=== PATIENT | male | born 1990 | race Caucasian/White ===

== ENCOUNTER 2023-09-04 09:24 | Outpatient (OUT) | payer BC, SELFPAY ==
[2023-09-04 10:05] LABS: Basophils Absolute Auto 0.1 10^3/uL (0.0-0.1); Basophils Percent Auto 0.6 % (0.2-2.0); Eosinophils Absolute Auto 0.1 10^3/uL (0.0-0.7); Eosinophils Percent Auto 1.1 % (0.9-7.0); Hematocrit 44.6 % (42.0-54.0); Hemoglobin 15.2 g/dL (14.0-18.0); Immature Granulocytes Abs Auto 0.04 10^3/uL (0.00-0.03); Immature Granulocytes Pct Auto 0.5 % (0.0-0.5); Lymphocytes Absolute Auto 2.9 10^3/uL (1.2-3.8); Lymphocytes Percent Auto 34.5 % (20.5-60.0); Mean Corpuscular HGB Conc 34.1 g/dL (29.9-35.2); Mean Corpuscular Hemoglobin 30.9 pg (25.9-34.0); Mean Corpuscular Volume 90.7 fL (80.0-94.0); Monocytes Absolute Auto 0.6 10^3/uL (0.3-0.8); Monocytes Percent Auto 6.8 % (1.7-12.0); Neutrophils Absolute Auto 4.7 10^3/uL (1.4-6.5); Neutrophils Percent Auto 56.5 % (43.0-75.0); Platelet Count 246 10^3/uL (150-450); Red Blood Count 4.92 10^6/uL (4.70-6.10); Red Cell Distribution Width 12.5 % (11.0-15.0); White Blood Count 8.4 10^3/uL (4.0-11.0)
[2023-09-04 10:06] LABS: Estimated Average Glucose 94 mg/dL; Glycohemoglobin A1C 4.9 % (4.5-6.2)
[2023-09-04 10:34] LABS: Alanine Aminotransferase 67 U/L (16-63); Albumin Globulin Ratio 1.2; Alkaline Phosphatase 67 U/L (46-116); Anion Gap 10.2; Aspartate Amino Transferase 26 U/L (15-37); BUN Creatinine Ratio 11.6; Bilirubin Total 0.4 mg/dL (0.2-1.0); Calcium 8.7 mg/dL (8.5-10.1); Carbon Dioxide 28.6 mmol/L (21.0-32.0); Chloride 107 mmol/L (98-107); Cholesterol 142 mg/dL (<=200); Estimated GFR (African America >60 (>=60); Estimated GFR (Non-African Ame >60 (>=60); Globulin 3.4 g/dL; Glucose 93 mg/dL (74-106); HDL Cholesterol 48 mg/dL (40-60); LDL Cholesterol Calculated 85.6 mg/dL; Potassium 3.8 mmol/L (3.5-5.1); Sodium 142 mmol/L (136-145); Total Protein 7.4 g/dL (6.4-8.2); Triglycerides 42 mg/dL (<=150); VLDL CHOLESTEROL 8.4 mg/dL
[2023-09-05 06:08] LABS: HIV Ab/p24 Ag Screen Non Reactive (Non Reactive)
[2023-09-07 21:08] LABS: HCV Ab Reactive (Non Reactive)
== END 2023-09-04 09:25 | disposition home or self-care (01) ==
LOC: LAB 09:28
PROVIDERS: PCP Nurse Practitioner Primary Care; Visit Provider Nurse Practitioner Primary Care
DX: Z00.00 Encounter for general adult medical examination without abnormal findings (principal); Z11.59 Encounter for screening for other viral diseases; Z13.6 Encounter for screening for cardiovascular disorders; Z11.4 Encounter for screening for human immunodeficiency virus [HIV]
CPT/HCPCS: 36415; 80053; 80061; 83036; 85025; 86803; 87389; 87522

== ENCOUNTER 2024-07-02 16:01 | Outpatient (OUT) | payer BC, SELFPAY ==
--- OUTSIDE RECORDS SUMMARY | 2024-07-02 16:26 | XMS_ITS | CCD ---
Author Organization [facility] Informformerly [facility] Partnership [facility] Care Team Providers Care Systems Security Analyst Name Role Phone [facility] Gregory Catherine Primary Care Provider MD Monie De La Paz Emergency Provider [phone] Monie De La Paz Attending Unavailable Monie De La Paz Admitting Unavailable Gregory Escalera Primary Care Unavailable Allergies Allergy Classification Reported Allergen(s) Allergy Type Date of Onset Reaction(s) Facility (1 source) Penicillins Drug allergy (disorder) 02-23-2024 [facility] Repository Medications Completed/Discontinued Medications Medication Drug Class(es) Dates Sig (Normalized) Sig (Original) amoxicillin 875 mg / clavulanate 125 mg oral tablet (2 sources) Penicillin-class Antibacterial Start: 09-01-2020 End: 06-29-2024 take 1 tablet by mouth twice daily Amoxicillin-Pot Clavulanate (Augmentin) 875-125 mg tablet Discontinued 1 TAB PO Twice daily September 01, 2020 12:00am June 29, 2024 3:02pm dicyclomine hydrochloride 10 mg oral capsule (2 sources) Anticholinergic Start: 07-16-2017 End: 09-01-2020 take 2 capsules by mouth every eight hours Dicyclomine (Bentyl) 10 mg capsule Discontinued 20 MG PO Q8H July 16, 2017 12:00am September 01, 2020 8:29pm ondansetron 4 mg disintegrating oral tablet (2 sources) Serotonin-3 Receptor Antagonist Start: 02-23-2024 End: 06-29-2024 Ondansetron Discontinued 4 MG PO every 6 to 8 hours February 23, 2024 12:00am June 29, 2024 3:02pm pantoprazole 20 mg delayed release oral tablet (2 sources) Proton Pump Inhibitor Start: 02-23-2024 End: 06-29-2024 take 1 tablet by mouth once daily Pantoprazole (Protonix) 20 mg tablet,delayed release (DR/EC) Discontinued 20 MG PO Daily February 23, 2024 12:00am June 29, 2024 3:02pm Problems Problem Classification Problem Date Documented Date Episodic/Chronic Abdominal pain (4 sources) Abdominal pain; Translations: [Unspecified abdominal pain] 02-23-2024 Episodic Hepatitis (1 source) Viral hepatitis C; Translations: [Unspecified viral hepatitis C without hepatic coma] 06-29-2024 Episodic Noninfectious gastroenteritis (2 sources) Colitis; Translations: [Noninfective gastroenteritis and colitis, unspecified] 10-23-2023 Episodic Nonspecific chest pain (3 sources) Atypical chest pain; Translations: [Other chest pain] Onset: 02-23-2024 02-23-2024 Episodic Results Test Name Value Interpretation Reference Range Facility Alanine aminotransferase [En zymatic activity/volume] in Serum or PlasmaOrdered By: Monie De La Paz on 02-23-2024 ALT [Catalytic activity/Vol] 38 U/L 7-52 [facility] Albumin [Mass/volume] in Ser um or Plasma by Bromocresol green (BCG) dye binding methoOrdered By: Monie De La Paz on 02-23-2024 Albumin BCG dye [Mass/Vol] 4.3 g/dL 3.5-5.7 [facility] Alkaline phosphatase [Enzyma tic activity/volume] in Serum or PlasmaOrdered By: Monie De La Paz on 02-23-2024 ALP [Catalytic activity/Vol] 52 U/L 34-104 [facility] Amylaseon 02-23-2024 Amylase [Catalytic activity/Vol] 47 U/L Normal 29-103 [facility] Comment on above: Performed By: #### B MP, HS TROP, LIPASE, RADHA, CBC, CK, HEPATIC #### [facility] [address] Amylase [Enzymatic activity/ volume] in Serum or PlasmaOrdered By: Monie De La Paz on 02-23-2024 Amylase [Catalytic activity/Vol] 47 U/L 29-103 [facility] Aspartate aminotransferase [ Enzymatic activity/volume] in Serum or PlasmaOrdered By: Monie De La Paz on 02-23-2024 AST [Catalytic activity/Vol] 22 U/L 13-39 [facility] Automated erythrocytes count in urine sediment (number/area)Ordered By: Monie De La Paz on 02-23-2024 RBC Auto (Urine sed) [#/Area] 1-2 [HPF] 0-4 [facility] Automated leukocytes count i n urine sediment (number/area)Ordered By: Monie De La Paz on 02-23-2024 WBC Auto (Urine sed) [#/Area] None seen [HPF] 0-4 [facility] Basic Metabolic Panelon 02-09 Anion gap [Moles/Vol] 10.8 mmol/L Normal 6.0-15.0 [facility] Comment on above: Performed By: #### B MP, HS TROP, LIPASE, RADHA, CBC, CK, HEPATIC #### [address] Calcium [Mass/Vol] 9.4 mg/dL Normal 8.6-10.3 [facility] Comment on above: Performed By: #### B MP, HS TROP, LIPASE, RADHA, CBC, CK, HEPATIC #### [address] Chloride [Moles/Vol] 106 mmol/L Normal 98-107 [facility] Comment on above: Performed By: #### B MP, HS TROP, LIPASE, RADHA, CBC, CK, HEPATIC #### [address] CO2 [Moles/Vol] 23.8 mmol/L Normal 21.0-31.0 [facility] Comment on above: Performed By: #### B MP, HS TROP, LIPASE, RADHA, CBC, CK, HEPATIC #### [address] Creatinine [Mass/Vol] 0.97 mg/dL Normal 0.70-1.30 [facility] Comment on above: Performed By: #### B MP, HS TROP, LIPASE, RADHA, CBC, CK, HEPATIC #### [address] Creatinine Clr Calc Pharmacy 115.37 Normal [facility] Comment on above: Performed By: #### B MP, HS TROP, LIPASE, RADHA, CBC, CK, HEPATIC #### [facility] [address] GFR/1.73 sq M.predicted MDRD (S/P/Bld) [Vol rate/Area] mL/min/{1.73_m2} Normal [facility] Comment on above: Performed By: #### B MP, HS TROP, LIPASE, RADHA, CBC, CK, HEPATIC #### [address] Glucose [Mass/Vol] 89 mg/dL Normal 70-100 [facility] Comment on above: Result Comment: [facility] [place] Glucose Reference Range is dependent on time and content of last meal. Glucose of more than 200 mg/dL in a nonstressed, ambulatory subject supports the diagnosis of Diabetes Mellitus. ADA recommended reference range Performed By: #### B MP, HS TROP, LIPASE, RADHA, CBC, CK, HEPATIC #### [address] Potassium [Moles/Vol] 3.6 mmol/L Normal 3.5-5.1 [facility] Comment on above: Performed By: #### B MP, HS TROP, LIPASE, RADHA, CBC, CK, HEPATIC #### [address] Sodium [Moles/Vol] 137 mmol/L Normal 136-145 [facility] Comment on above: Performed By: #### B MP, HS TROP, LIPASE, RADHA, CBC, CK, HEPATIC #### [address] Urea nitrogen [Mass/Vol] 7 mg/dL Normal 7-25 [facility] Comment on above: Performed By: #### B MP, HS TROP, LIPASE, RADHA, CBC, CK, HEPATIC #### [place] [address] [place] Basophils Auto (Bld) [#/Vol] Ordered By: Monie De La Paz on 02-23-2024 Basophils (Bld) [#/Vol] 0.2 10*3/uL 0.0-0.2 [facility] Basophils/100 WBC Auto (Bld) Ordered By: Monie De La Paz on 02-23-2024 Basophils/100 WBC (Bld) 1.0 % . [facility] Bilirubin Test strip Ql (U)O rdered By: Monie De La Paz on 02-23-2024 Bilirubin Ql (U) Negative Negative [facility] Bilirubin.direct [Mass/volum e] in Serum or PlasmaOrdered By: Monie De La Paz on 02-23-2024 Bilirubin.direct [Mass/Vol] 0.10 mg/dL 0.03-0.18 [facility] Bilirubin.total [Mass/volume ] in Serum or PlasmaOrdered By: Monie De La Paz on 02-23-2024 Bilirubin [Mass/Vol] 0.7 mg/dL 0.3-1.0 [facility] CT abdomen pelvis wo conon 0 02-23-2024 CT abdomen pelvis wo con [facility] [place] [address] CT Scan Report Signed Patient: Fredy Card MR#: [id number] 71 : 1990 Acct:[id number] Age/Sex: 33 / M ADM Date: 02/23/24 Loc: ER Room: Type: [facility] ER Attending Dr: Copies to: Monie De La Paz MD Ordering Provider: Monie De La Paz MD Date of Service: 02/23/24 CT/CT abdomen pelvis wo con: abdominal pain CT abdomen pelvis wo con 02/23/2024 5:49 PM SIGNS AND SYMPTOMS: Abdominal pain and chest pain with dizziness and nausea TECHNIQUE: Multidetector ct axial images of the abdomen and pelvis were obtained without IV contrast. Multiplanar reformats were performed and reviewed to further define anatomy and possible pathology. CT was performed with one or more of the following dose reduction techniques: Automated exposure control, adjustment of the mA and/or kV according to patient size, or use of iterative reconstruction technique. COMPARISON: 09/01/2020 there is a 6 mm calcified granuloma at the right lung base which is unchanged. FINDINGS: Lower Chest: Within normal limits. ABDOMEN: Liver: Within normal limits. Bile Ducts: Normal caliber. Gallbladder: No calcified gallstones. Normal caliber wall. Pancreas: Within normal limits. Spleen: Calcified granulomas are present in the spleen. Adrenals: Within normal limits. Kidneys: Within normal limits. Pelvis: Reproductive Organs: No pelvic masses. Ureters: Within normal limits. Bladder: Within normal limits. Bowel: Normal caliber. There is a normal appendix in the right lower quadrant. Mesenteric Lymph Nodes: No enlarged mesenteric lymph nodes. Peritoneum: No ascites or free air, no fluid collection. Vessels: within normal limits Retroperitoneum: Within normal limits. Abdominal Wall: Within normal limits. Bones: Within normal limits. CT/CT abdomen pelvis wo con IMPRESSION: No bowel obstruction or obstructive uropathy. No free fluid or free air. Impression dictated by: Jose Barney M.D.02/23/2024 6:43 PM Dictation Location: [place] [address] Transcribed By: [facility] 02/23/241842 Dictated By: Jose Barney II, MD 02/23/241832 Signed By: 02/23/241842 Normal [facility] Calcium [Mass/volume] in Ser um or PlasmaOrdered By: Monie De La Paz on 02-23-2024 Calcium [Mass/Vol] 9.4 mg/dL 8.6-10.3 [facility] Carbon dioxide, total [Moles /volume] in Serum or PlasmaOrdered By: Monie DeL a Paz on 02-23-2024 CO2 [Moles/Vol] 23.8 mmol/L 21.0-31.0 [facility] Chloride [Moles/volume] in S madelyn or PlasmaOrdered By: Monie De La Paz on 02-23-2024 Chloride [Moles/Vol] 106 mmol/L 98-107 [facility] Color Auto (U)Ordered By: Suzi De La Paz on 02-23-2024 Color (U) Yellow Yellow [facility] Complete Blood Count Auto Di ffon 02-23-2024 Basophils (Bld) [#/Vol] 0.2 10*3/uL Normal 0.0-0.2 [facility] Comment on above: Result Comment: PERF ORMED BY: [address] [address] PATHOLOGIST CMM OPERATOR JINNY LUIS M.D. Performed By: #### B MP, HS TROP, LIPASE, RADHA, CBC, CK, HEPATIC #### [address] [address] [place] Basophils/100 WBC (Bld) 1.0 % Normal . [facility] Comment on above: Performed By: #### B MP, HS TROP, LIPASE, RADHA, CBC, CK, HEPATIC #### [address] Eosinophils (Bld) [#/Vol] 0.0 10*3/uL Normal 0.0-0.45 [facility] Comment on above: Performed By: #### B MP, HS TROP, LIPASE, RADHA, CBC, CK, HEPATIC #### [address] Eosinophils/100 WBC (Bld) 0.1 % Normal . [facility] Comment on above: Performed By: #### B MP, HS TROP, LIPASE, RADHA, CBC, CK, HEPATIC #### [address] Erythrocyte distribution width (RBC) [Ratio] 13.6 % Normal 12.0-14.8 [facility] Comment on above: Performed By: #### B MP, HS TROP, LIPASE, RADHA, CBC, CK, HEPATIC #### [address] Hematocrit (Bld) [Volume fraction] 42.5 % Normal 38.8-50.0 [facility] Comment on above: Performed By: #### B MP, HS TROP, LIPASE, RADHA, CBC, CK, HEPATIC #### [address] Hemoglobin (Bld) [Mass/Vol] 14.5 g/dL Normal 13.0-17.0 [facility] Comment on above: Performed By: #### B MP, HS TROP, LIPASE, RADHA, CBC, CK, HEPATIC #### [address] Lymphocytes (Bld) [#/Vol] 2.4 10*3/uL Normal 1.00-4.8 [facility] Comment on above: Performed By: #### B MP, HS TROP, LIPASE, RADHA, CBC, CK, HEPATIC #### [address] Lymphocytes/100 WBC (Bld) 14.9 % Normal . [facility] Comment on above: Performed By: #### B MP, HS TROP, LIPASE, RADHA, CBC, CK, HEPATIC #### [address] MCH (RBC) [Entitic mass] 30.6 pg Normal 27.5-35.2 [facility] Comment on above: Performed By: #### B MP, HS TROP, LIPASE, RADHA, CBC, CK, HEPATIC #### [address] MCV (RBC) [Entitic vol] 89.7 fL Normal 83.5-101 [facility] Comment on above: Performed By: #### B MP, HS TROP, LIPASE, RADHA, CBC, CK, HEPATIC #### [address] Mean Corpuscular HGB Conc 34.1 g/dL Normal 32.5-35.6 [facility] Comment on above: Performed By: #### B MP, HS TROP, LIPASE, RADHA, CBC, CK, HEPATIC #### [address] Monocytes (Bld) [#/Vol] 0.9 10*3/uL High 0.0-0.8 [facility] Comment on above: Performed By: #### B MP, HS TROP, LIPASE, RADHA, CBC, CK, HEPATIC #### [address] Monocytes/100 WBC (Bld) 23.97 % High 0.00-20.00 [facility] Comment on above: Result Comment: For adults in ED, MDW > 20.0 may be associated with a higher risk of sepsis during the first 12 hrs of hospital admission Performed By: #### B MP, HS TROP, LIPASE, RADHA, CBC, CK, HEPATIC #### [address] Monocytes/100 WBC (Bld) 5.8 % Normal . [facility] Comment on above: Performed By: #### B MP, HS TROP, LIPASE, RADHA, CBC, CK, HEPATIC #### [address] Neutrophils (Bld) [#/Vol] 12.6 10*3/uL High 1.8-7.7 [facility] Comment on above: Performed By: #### B MP, HS TROP, LIPASE, RADHA, CBC, CK, HEPATIC #### [address] Neutrophils/100 WBC (Bld) 78.2 % Normal . [facility] Comment on above: Performed By: #### B MP, HS TROP, LIPASE, RADHA, CBC, CK, HEPATIC #### [address] NRBC% 0.1 /100{WBC} Normal 0-0.5 [facility] Comment on above: Performed By: #### B MP, HS TROP, LIPASE, RADHA, CBC, CK, HEPATIC #### [address] Platelet mean volume (Bld) [Entitic vol] 8.4 fL Normal 6.6-10.1 [facility] Comment on above: Performed By: #### B MP, HS TROP, LIPASE, RADHA, CBC, CK, HEPATIC #### [address] Platelets (Bld) [#/Vol] 218 10*3/uL Normal 150-450 [facility] Comment on above: Performed By: #### B MP, HS TROP, LIPASE, RADHA, CBC, CK, HEPATIC #### [address] RBC (Bld) [#/Vol] 4.74 10*6/uL Normal 3.90-5.60 [facility] Comment on above: Performed By: #### B MP, HS TROP, LIPASE, RADHA, CBC, CK, HEPATIC #### [address] WBC (Bld) [#/Vol] 16.1 10*3/uL High 4.1-10.5 [facility] Comment on above: Performed By: #### B MP, HS TROP, LIPASE, RADHA, CBC, CK, HEPATIC #### [facility] [address] [place] [address] [place] Creatine Kinaseon 02-23-2024 CK [Catalytic activity/Vol] 67 U/L Normal [facility] Comment on above: Performed By: #### B MP, HS TROP, LIPASE, RADHA, CBC, CK, HEPATIC #### [facility] [address] [place] [id number] [facility] Creatine kinase [Enzymatic a ctivity/volume] in Serum or PlasmaOrdered By: Monie De La Paz on 02-23-2024 CK [Catalytic activity/Vol] 67 U/L [facility] Creatinine [Mass/volume] in Serum or PlasmaOrdered By: Monie De La Paz on 02-23-2024 Creatinine [Mass/Vol] 0.97 mg/dL 0.70-1.30 [facility] Dipstick and Microscopicon 0 02-23-2024 Appearance (U) Cloudy Critically abnormal Clear [facility] Comment on above: Order Comment: Name Collection Type:: Clean-Voided Midstream Performed By: #### B MP, HS TROP, LIPASE, RADHA, CBC, CK, HEPATIC #### [facility] [address] [place] [address] [place] Bacteria,Urine None Seen Normal None Seen [facility] Comment on above: Order Comment: Name Collection Type:: Clean-Voided Midstream Performed By: #### B MP, HS TROP, LIPASE, RADHA, CBC, CK, HEPATIC #### [facility] [address] [place] [id number] [place] Bilirubin,Urine Negative Normal Negative [facility] Comment on above: Order Comment: Name Collection Type:: Clean-Voided Midstream Performed By: #### B MP, HS TROP, LIPASE, RADHA, CBC, CK, HEPATIC #### [facility] [address] [place] [address] [facility] Color (U) Yellow Normal Yellow [facility] Comment on above: Order Comment: Name Collection Type:: Clean-Voided Midstream Performed By: #### B MP, HS TROP, LIPASE, RADHA, CBC, CK, HEPATIC #### [address] Glucose Ql (U) Normal Normal Normal [facility] Comment on above: Order Comment: Name Collection Type:: Clean-Voided Midstream Performed By: #### B MP, HS TROP, LIPASE, RADHA, CBC, CK, HEPATIC #### [address] Hyaline Casts,Urine None Seen Normal 0-8 [facility] Comment on above: Order Comment: Name Collection Type:: Clean-Voided Midstream Result Comment: PERF ORMED BY: [place] [address] PATHOLOGIST CMM OPERATOR JINNY LUIS M.D. Performed By: #### B MP, HS TROP, LIPASE, RADHA, CBC, CK, HEPATIC #### [address] Ketones Ql (U) Negative Normal Negative [facility] Comment on above: Order Comment: Name Collection Type:: Clean-Voided Midstream Performed By: #### B MP, HS TROP, LIPASE, RADHA, CBC, CK, HEPATIC #### [address] Leukocyte esterase Test strip Ql (U) Negative Normal Negative [facility] Comment on above: Order Comment: Name Collection Type:: Clean-Voided Midstream Performed By: #### B MP, HS TROP, LIPASE, RADHA, CBC, CK, HEPATIC #### [address] Nitrite,Urine Negative Normal Negative [facility] Comment on above: Order Comment: Name Collection Type:: Clean-Voided Midstream Performed By: #### B MP, HS TROP, LIPASE, RADAH, CBC, CK, HEPATIC #### [address] Occult Blood,Urine Negative Normal Negative [facility] Comment on above: Order Comment: Name Collection Type:: Clean-Voided Midstream Result Comment: PERF ORMED BY: [place] [address] PATHOLOGIST CMM OPERATOR JINNY LUIS M.D. Performed By: #### B MP, HS TROP, LIPASE, RADHA, CBC, CK, HEPATIC #### [address] pH (U) 8.5 [pH] Normal 5.0-9.0 [facility] Comment on above: Order Comment: Name Collection Type:: Clean-Voided Midstream Performed By: #### B MP, HS TROP, LIPASE, RADHA, CBC, CK, HEPATIC #### [address] Protein,Urine Negative Normal Negative [facility] Comment on above: Order Comment: Name Collection Type:: Clean-Voided Midstream Performed By: #### B MP, HS TROP, LIPASE, RADHA, CBC, CK, HEPATIC #### [address] RBC,Urine 1-2 Normal 0-4 [facility] Comment on above: Order Comment: Name Collection Type:: Clean-Voided Midstream Performed By: #### B MP, HS TROP, LIPASE, RADHA, CBC, CK, HEPATIC #### [address] Specificy [place],Urine 1.009 Normal 1.001-1.030 [facility] Comment on above: Order Comment: Name Collection Type:: Clean-Voided Midstream Performed By: #### B MP, HS TROP, LIPASE, RADHA, CBC, CK, HEPATIC #### [address] Squamous Epithelial Cell,Urine None Seen Normal 0-2 [facility] Comment on above: Order Comment: Name Collection Type:: Clean-Voided Midstream Performed By: #### B MP, HS TROP, LIPASE, RADHA, CBC, CK, HEPATIC #### [address] Urobilinogen,Urine Normal Normal Normal [facility] Comment on above: Order Comment: Name Collection Type:: Clean-Voided Midstream Performed By: #### B MP, HS TROP, LIPASE, RADHA, CBC, CK, HEPATIC #### [facility] [address] WBC,Urine None Seen Normal 0-4 [facility] Comment on above: Order Comment: Name Collection Type:: Clean-Voided Midstream Performed By: #### B MP, HS TROP, LIPASE, RADHA, CBC, CK, HEPATIC #### [facility] [address] ECG 12 lead ECGon 02-23-2024 ECG 12 lead ECG [facility] Main [place] [address] [place] [address] Electrocardiograph Report Signed Patient: Fredy Card MR#: [id number] 71 : 1990 Acct:[id number] Age/Sex: 33 / M ADM Date: 02/23/24 Loc: ER Room: Type: [facility] ER Attending Dr: Ordering Provider: Monie De La Paz MD Date of Service: 02/23/24 ECG/ECG 12 lead ECG: Chest Pain Copies to: Test Reason : Blood Pressure : 121/075 mmHG Vent. Rate : 080 BPM Atrial Rate : 080 BPM P-R Int : 172 ms QRS Dur : 078 ms QT Int : 334 ms P-R-T Axes : 079 071 073 degrees QTc Int : 385 ms Normal sinus rhythm Normal ECG No previous ECGs available Confirmed by MONIE DE LA PAZ MD ([id number]) on 02/23/2024 11:46:51 PM Referred By: Electronically Signed By:MONIE DE LA PAZ MD Transcribed By: [facility] Signed By Monie De La Paz MD 02/23/24 9872 Normal [facility] Eosinophils Auto (Bld) [#/Vo l]Ordered By: Monie De La Paz on 02-23-2024 Eosinophils (Bld) [#/Vol] 0.0 10*3/uL 0.0-0.45 [facility] Eosinophils/100 WBC Auto (Bl d)Ordered By: Monie De La Paz on 02-23-2024 Eosinophils/100 WBC (Bld) 0.1 % . [facility] Erythrocyte distribution wid th Auto (RBC) [Ratio]Ordered By: Monie De La Paz on 02-23-2024 Erythrocyte distribution width (RBC) [Ratio] 13.6 % 12.0-14.8 [facility] Globulin Calc (S) [Mass/Vol] Ordered By: Monie De La Paz on 02-23-2024 Globulin (S) [Mass/Vol] 2.7 g/dL [facility] Glucose [Mass/volume] in Ser um or PlasmaOrdered By: Monie De La Paz on 02-23-2024 Glucose [Mass/Vol] 89 mg/dL 70-100 [facility] Comment on above: ADA recommended refe rence rangeRandom Glucose Reference Range is dependent on time and content of last meal. Glucose of more than 200 mg/dL in a nonstressed, ambulatory subject supports the diagnosis of Diabetes Mellitus. Hematocrit Auto (Bld) [Volum e fraction]Ordered By: Monie De La Paz on 02-23-2024 Hematocrit (Bld) [Volume fraction] 42.5 % 38.8-50.0 [facility] Hemoglobin [Mass/volume] in BloodOrdered By: Monie De La Paz on 02-23-2024 Hemoglobin (Bld) [Mass/Vol] 14.5 g/dL 13.0-17.0 [facility] Hepatic Panelon 02-23-2024 Albumin [Mass/Vol] 4.3 g/dL Normal 3.5-5.7 [facility] Comment on above: Performed By: #### B MP, HS TROP, LIPASE, RADHA, CBC, CK, HEPATIC #### [facility] [address] Albumin/Globulin [Mass ratio] 1.6 {ratio} Normal [facility] Comment on above: Performed By: #### B MP, HS TROP, LIPASE, RADHA, CBC, CK, HEPATIC #### [facility] [address] [place] [phone] [place] ALP [Catalytic activity/Vol] 52 U/L Normal 34-104 [facility] Comment on above: Performed By: #### B MP, HS TROP, LIPASE, RADHA, CBC, CK, HEPATIC #### [facility] [facility] [address] [id number] [place] ALT [Catalytic activity/Vol] 38 U/L Normal 7-52 [facility] Comment on above: Performed By: #### B MP, HS TROP, LIPASE, RADHA, CBC, CK, HEPATIC #### [address] AST [Catalytic activity/Vol] 22 U/L Normal 13-39 [facility] Comment on above: Performed By: #### B MP, HS TROP, LIPASE, RADHA, CBC, CK, HEPATIC #### [address] Bilirubin [Mass/Vol] 0.7 mg/dL Normal 0.3-1.0 [facility] Comment on above: Performed By: #### B MP, HS TROP, LIPASE, RADHA, CBC, CK, HEPATIC #### [address] Bilirubin,Indirect 0.6 mg/dL Normal [facility] Comment on above: Performed By: #### B MP, HS TROP, LIPASE, RADHA, CBC, CK, HEPATIC #### [address] Bilirubin.indirect [Mass/Vol] 0.10 mg/dL Normal 0.03-0.18 [facility] Comment on above: Performed By: #### B MP, HS TROP, LIPASE, RADHA, CBC, CK, HEPATIC #### [address] Globulin (S) [Mass/Vol] 2.7 g/dL Normal T [facility] Comment on above: Performed By: #### B MP, HS TROP, LIPASE, RADHA, CBC, CK, HEPATIC #### [address] Protein [Mass/Vol] 7.0 g/dL Normal 6.4-8.9 [facility] Comment on above: Performed By: #### B MP, HS TROP, LIPASE, RADHA, CBC, CK, HEPATIC #### [address] Ketones Auto test strip (U) [Mass/Vol]Ordered By: Monie De La Paz on 02-23-2024 Ketones (U) [Mass/Vol] Negative Negative [facility] - UrinalysisOrder ed By: Monie De La Paz on 02-23-2024 Hyaline casts LM Ql (Urine sed) None seen [LPF] 0-8 [facility] Leukocytes [#/volume] correc roxane for nucleated erythrocytes in Blood by Automated counOrdered By: Monie De La Paz on 02-23-2024 WBC corrected for nucl RBC Auto (Bld) [#/Vol] 16.1 10*3/uL 4.1-10.5 [facility] Lipaseon 02-23-2024 Lipase [Catalytic activity/Vol] 19.0 U/L Normal 11.0-82.0 [facility] Comment on above: Result Comment: PERF ORMED BY: [place] [address] PATHOLOGIST CMM OPERATOR JINNY LUIS M.D. Performed By: #### B MP, HS TROP, LIPASE, RADHA, CBC, CK, HEPATIC #### [address] Lipase [Enzymatic activity/v olume] in Serum or PlasmaOrdered By: Monie De La Paz on 02-23-2024 Lipase [Catalytic activity/Vol] 19.0 U/L 11.0-82.0 [facility] Lymphocytes Auto (Bld) [#/Vo l]Ordered By: Monie De La Paz on 02-23-2024 Lymphocytes (Bld) [#/Vol] 2.4 10*3/uL 1.00-4.8 [facility] Lymphocytes/100 WBC Auto (Bl d)Ordered By: Monie De La Paz on 02-23-2024 Lymphocytes/100 WBC (Bld) 14.9 % . [facility] MCH Auto (RBC) [Entitic mass ]Ordered By: Monie De La Paz on 02-23-2024 MCH (RBC) [Entitic mass] 30.6 pg 27.5-35.2 [facility] MCHC Auto (RBC) [Mass/Vol]Or dered By: Monie De La Paz on 02-23-2024 MCHC (RBC) [Mass/Vol] 34.1 g/dL 32.5-35.6 [facility] MCV Auto (RBC) [Entitic vol] Ordered By: Monie De La Paz on 02-23-2024 MCV (RBC) [Entitic vol] 89.7 fL 83.5-101 [facility] Monocyte distribution width [Entitic volume] in Blood by AutomatedOrdered By: Monie De La Paz on 02-23-2024 Monocyte distribution width Auto (Bld) [Entitic vol] 23.97 % 0.00-20.00 [facility] Comment on above: For adults in ED, MD W > 20.0 may be associated with a higher risk of sepsis during the first 12 hrs of hospital admission Monocytes Auto (Bld) [#/Vol] Ordered By: Monie De La Paz on 02-23-2024 Monocytes (Bld) [#/Vol] 0.9 10*3/uL 0.0-0.8 [facility] Monocytes/100 WBC Auto (Bld) Ordered By: Monie De La Paz on 02-23-2024 Monocytes/100 WBC (Bld) 5.8 % . [facility] Neutrophils Auto (Bld) [#/Vo l]Ordered By: Monie De La Paz on 02-23-2024 Neutrophils (Bld) [#/Vol] 12.6 10*3/uL 1.8-7.7 [facility] Neutrophils/100 WBC Auto (Bl d)Ordered By: Monie De La Paz on 02-23-2024 Neutrophils/100 WBC (Bld) 78.2 % . [facility] Nitrite Test strip Ql (U)Ord ered By: Monie De La Paz on 02-23-2024 Nitrite Ql (U) Negative Negative [facility] No Panel InformationOrdered By: Monie De La Paz on 02-23-2024 Estimated GFR (CKD-EPI) > 60.0 mL/Min [facility] Creatinine Clearance (Chem 115.37 [facility] Nucleated erythrocytes [Pres ence] in Blood by Automated countOrdered By: Monie De La Paz on 02-23-2024 Nucleated RBC Auto Ql (Bld) 0.1 /100{WBC} 0-0.5 [facility] Platelet mean volume Auto (B ld) [Entitic vol]Ordered By: Monie De La Paz on 02-23-2024 Platelet mean volume (Bld) [Entitic vol] 8.4 fL 6.6-10.1 [facility] Platelets Auto (Bld) [#/Vol] Ordered By: Monie De La Paz on 02-23-2024 Platelets (Bld) [#/Vol] 218 10*3/uL 150-450 [facility] Potassium [Moles/volume] in Serum or PlasmaOrdered By: Monie De La Paz on 02-23-2024 Potassium [Moles/Vol] 3.6 mmol/L 3.5-5.1 [facility] Protein Auto test strip (U) [Mass/Vol]Ordered By: Monie De La Paz on 02-23-2024 Protein (U) [Mass/Vol] Negative Negative [facility] Protein [Mass/volume] in Ser um or PlasmaOrdered By: Monie De La Paz on 02-23-2024 Protein [Mass/Vol] 7.0 g/dL 6.4-8.9 [facility] RBC Auto (Bld) [#/Vol]Ordere d By: Monie De La Paz on 02-23-2024 RBC (Bld) [#/Vol] 4.74 10*6/uL 3.90-5.60 [facility] Serum or plasma albumin/glob ulin mass ratioOrdered By: Monie De La Paz on 02-23-2024 Albumin/Globulin [Mass ratio] 1.6 {ratio} [facility] Serum or plasma anion gap de terminationOrdered By: Monie De La Paz on 02-23-2024 Anion gap [Moles/Vol] 10.8 mmol/L 6.0-15.0 [facility] Serum or plasma non-glucuron idated bilirubin measurement (mass/volume)Ordered By: Monie De La Paz on 02-23-2024 Bilirubin.indirect [Mass/Vol] 0.6 mg/dL [facility] Sodium [Moles/volume] in Ser um or PlasmaOrdered By: Monie De La Paz on 02-23-2024 Sodium [Moles/Vol] 137 mmol/L 136-145 [facility] Specific gravity Auto test s trip (U) [Rel density]Ordered By: Monie De La Paz on 02-23-2024 Specific gravity (U) [Rel density] 1.009 1.001-1.030 [facility] Squamous epithelial cells de tection in urine sediment by light microscopyOrdered By: Monie De La Paz on 02-23-2024 Epithelial cells.squamous LM Ql (Urine sed) None seen [HPF] 0-2 [facility] Troponin I High Sensitivityo n 02-23-2024 Troponin I High Sensitivity 3.4 pg/mL Normal 0.0-20.0 [facility] Comment on above: Result Comment: PERF ORMED BY: [facility] [address] [place] [address] PATHOLOGIST CMM OPERATOR JINNY LUIS M.D. Performed By: #### B MP, HS TROP, LIPASE, RADHA, CBC, CK, HEPATIC #### [facility] [address] Troponin I.cardiac [Mass/vol ume] in Serum or Plasma by Detection limit <= 0.01 ng/Ordered By: Monie De La Paz on 02-23-2024 Troponin I.cardiac DL <= 0.01 ng/mL [Mass/Vol] 3.4 pg/mL 0.0-20.0 [facility] Urea nitrogen [Mass/volume] in Serum or PlasmaOrdered By: Monie De La Paz on 02-23-2024 Urea nitrogen [Mass/Vol] 7 mg/dL 7-25 [facility] Urine bacteria detection by automated methodOrdered By: Monie De La Paz on 02-23-2024 Bacteria Auto Ql (U) None seen None Seen [facility] Urine clarity by refractomet ry automatedOrdered By: Monie De La Paz on 02-23-2024 Clarity Refractometry automated (U) Cloudy Clear [facility] Urine glucose measurement by automated test strip (mass/volume)Ordered By: Monie De La Paz on 02-23-2024 Glucose Auto test strip (U) [Mass/Vol] Normal mg/dL Normal [facility] Urine hemoglobin detection b y automated test stripOrdered By: Monie De La Paz on 02-23-2024 Hemoglobin Auto test strip Ql (U) Negative Negative [facility] Urine leukocyte esterase det ection by automated test stripOrdered By: Monie De La Paz on 02-23-2024 Leukocyte esterase Auto test strip Ql (U) Negative Negative [facility] Urobilinogen Auto test strip (U) [Mass/Vol]Ordered By: Monie De La Paz on 02-23-2024 Urobilinogen (U) [Mass/Vol] Normal mg/dL Normal [facility] WBC Auto (Bld) [#/Vol]Ordere d By: Monie De La Paz on 02-23-2024 WBC (Bld) [#/Vol] 16.1 10*3/uL 4.1-10.5 [facility] XR chest 1V portableon 02-22 XR chest 1V portable [facility] [place] [place] [address] XRay Report Signed Patient: Ferdy Card MR#: [id number] 71 : 1990 Acct:[id number] Age/Sex: 33 / M ADM Date: 02/23/24 Loc: ER Room: Type: [facility] ER Attending Dr: Copies to: Monie De La Paz MD Ordering Provider: Monie De La Paz MD Date of Service: 02/23/24 XR/XR chest 1V portable: Chest Pain XR chest 1V portable 02/23/2024 5:49 PM SIGNS AND SYMPTOMS: Nausea, dizziness, lower abdominal pain PROTOCOL: Frontal radiograph of the chest COMPARISON: None FINDINGS: The trachea is midline. The heart and mediastinal structures are within normal limits. The lung parenchyma is clear. The bony thorax is intact. XR/XR chest 1V portable IMPRESSION: No acute cardiopulmonary pathology. Impression dictated by: Jose Barney M.D.02/23/2024 6:09 PM Dictation Location: [place] [address] Transcribed By: [facility] 02/23/241808 Dictated By: Jose Barney II, MD 02/23/241807 Signed By: 02/23/241808 Normal [facility] pH Auto test strip (U)Ordere d By: Monie De La Paz on 02-23-2024 pH (U) 8.5 [pH] 5.0-9.0 [facility] Vital Signs Date Time Vital Sign Value Performing Clinician Shaun srivastava 06-29-2024 15:02-0400 Body height 180.[address] [facility] 06-29-2024 15:02-0400 Body mass index (BMI) [Ratio] 25.7 kg/m2 [facility] 06-29-2024 15:02-0400 Body weight 83.[address] [facility] 02-23-2024 19:18-0400 Body temperature 99.7 [degF] PICTURE COPYIST-BC Gregory Shammo Work Phone: [facility] 02-23-2024 19:18-0400 Diastolic blood pressure 69 mm[Hg] PICTURE COPYIST-BC Gregory Shammo Work Phone: [facility] 02-23-2024 19:18-0400 Heart rate 68 /min PICTURE COPYIST-BC Gregory Shammo Work Phone: [facility] 02-23-2024 19:18-0400 Respiratory rate 20 /min PICTURE COPYIST-BC Gregory Shammo Work Phone: [facility] 02-23-2024 19:18-0400 SaO2% (BldA) [Mass fraction] 98 % PICTURE COPYIST-BC Gregory Shammo Work Phone: [facility] 02-23-2024 19:18-0400 Systolic blood pressure 114 mm[Hg] PICTURE COPYIST-BC Gregory Shammo Work Phone: [facility] 02-23-2024 17:28-0400 Body height 180.34 cm PICTURE COPYIST-BC Gregory Shammo Work Phone: [facility] 02-23-2024 17:28-0400 Body weight 84 kg PICTURE COPYIST-BC Gregory Shammo Work Phone: [facility] Encounters Encounter Date Encounter Type Care Provider Facility Start: 06-29-2024 End: 06-29-2024 ambulatory [facility] Work Phone: Start: 06-29-2024 End: 06-29-2024 Patient encounter procedure [facility] Work Phone: Start: 02-23-2024 End: 02-23-2024 Emergency department patient visit Monie De La Paz Facility:[facility] Start: 02-23-2024 End: 02-23-2024 Emergency department patient visit PICTURE COPYIST-BC Gregory Shammo Work Phone: [facility] Work Phone: Procedures Date Procedure Procedure Detail Performing Clinician Start: 02-23-2024 CT of abdomen and pe lvis without contrast PICTURE COPYIST-BC Gregory Escalera Work Phone: Start: 02-23-2024 Plain chest X-ray PICTURE COPYIST-B C Gregory Escalera Work Phone: Plan of Treatment Date Care Activity Detail Author Hepatitis B core ant ibody measurement [facility] Hepatitis B virus rogers rface Ab [Presence] in Serum [facility] Patient Education Abdominal Pain , Adult ED Chest Pain, Adult ED [facility] Work Phone: Patient referral [facility] Work Phone: [facility] Payers Date Payer Category Payer Self-pay [id number] 2024 Unknown [id number] Unknown [facility] [id number] Unknown [id number] Social History Date Type Detail Facility Start: [facility]23-[facility] Start: 1990 Sex Assigned At Male F [facility] Chief complaint+Reason for visit Narrative Note Date & Type Note Facility Chief complaint+Reason for v isit Narrative [facility] Work Phone: Evaluation note Note Date & Type Note Facility Evaluation note No assessment information availa ble [facility] Work Phone: Evaluation note Note Date & Type Note Facility Evaluation note Authored June 29, 2024 3: 11pm 34-year-old man referred to the liver clinic for evaluation of hepatitis C Will check [facility] Work Phone: Hospital Discharge instructions Note Date & Type Note Facility Hospital Discharge instructions Additional Instructions Tylenol every 4 hours [facility] Work Phone: Chief Complaint and Reason for Visit Chief Complaint cp,low abd pain,naus ea Family History Relationship Condition Age at Onset Recorded Date/T nasreen Not Specified No pertinent family history Unknown father Diabetes mellitus Unknown Heart disease Unknown Advance Directives Advance Directive Response Recorded Date/ Time Advance Directives Yes July 3:33am Summary Purpose Additional Source Comments Care Teams (unrecognized sec tion and content) Team Status: Active Member Role Status Dates Gregory Escalera [facility] Primary Care Provider Active Team Status: Inactive Member Role Status Dates Gregory Escalera [facility] Primary Care Provider Active Start: February 23, 2024 End: February 23, 2024 Monie De La Paz MD Emergency Provider Active Star t: February 23, 2024 End: February 23, 2024 Team Status: Inactive Member Role Status Dates Gregory Escalera [facility] Primary Care Provider Active Start: June 29, 2024 End: June 29, 2024 Hailey Oneal MD Attending Provider Active Start: June 29, 2024 End: June 29, 2024 Goals (unrecognized section and content) Goals may be documented in a n alternate sectionGoals may be documented in an alternate section (unrecognized sect ion and content) No Status Records Found INFORMATION SOURCE (unrecogn ized section and content) DATE CREATED AUTHOR 03/05/2024 [facility] FOR RECORDS PERTAINING TO PATIENTS WHO ARE OR HAVE BEEN ENROLLED IN A CHEMICAL DEPENDENCY/SUBSTANCEABUSE PROGRAM, SOME INFORMATION MAY BE OMITTED. This clinical summary was aggregated from multiple sources. Caution should be exercised in using it in the provision of clinical care. This summary normalizes information from multiple sources, and as a consequence, information in this document may materially change the coding, format and clinical context of patient data. In addition, data may be omitted in some cases. CLINICAL DECISIONS SHOULD BE BASED ON THE PRIMARY CLINICAL RECORDS. [facility] [employer] [facility]. provides no warranty or guarantee of the accuracy or completeness of information in this document.
[2024-07-04 05:07] LABS: HBsAg Screen Negative (Negative); HIV Ab/p24 Ag Screen Non Reactive (Non Reactive); Hep B Core Ab, Tot Negative (Negative)
[2024-07-05 21:07] LABS: Hepatitis C Genotype 1a (.)
== END 2024-07-02 16:02 | disposition home or self-care (01) ==
PROVIDERS: PCP Nurse Practitioner Primary Care; Visit Provider Internal Medicine
DX: B19.20 Unspecified viral hepatitis C without hepatic coma (principal)
CPT/HCPCS: 36415; 86317; 86704; 87340; 87389; 87522; 87902